=== PATIENT | female | born 1985 | race Caucasian/White ===

== ENCOUNTER 2022-08-19 15:44 | Outpatient (CLI) | payer OTHER, SELFPAY ==
[2022-08-21 17:46] LABS: Strep B DNA Probe NEGATIVE (Negative)
[2022-08-23 10:07] LABS: Strep B Pen/Amox Allergy No
== END 2022-08-19 15:45 | disposition home or self-care (01) ==
LOC: NFLDREF 15:44
PROVIDERS: Visit Provider Advanced Practice Midwife
DX: Z34.83 Encounter for supervision of other normal pregnancy, third trimester (principal); Z3A.36 36 weeks gestation of pregnancy
CPT/HCPCS: 87081; 87653

== ENCOUNTER 2022-09-21 06:34 | Inpatient (IN) | payer OTHER, SELFPAY ==
[2022-09-21] VITALS (8 sets, daily range): BP systolic 98–106; BP diastolic 52–60; PULSE 75–95; RESP 16; TEMP 36.5–36.8; O2SAT 94–99; BMI 27.8
--- NOTE | 2022-09-21 08:50 | W.PM.LDBA ---
Documented by User: Anju Carmen CNM 09/21/22 13:10 Subjective History of Present Illness Time Seen by Provider: 08:50 Date Seen: 09/21/22 Narrative: Richie is being admitted to Labor and Delivery for IOL r/t postdates. She is a 37 year old at 41 0/7 weeks gestation. Her full history and physical was dictated by Linn Muñoz CNM on 08/26/22. Please see this for details. Nathaly will be at bedside for support. G2, P1 001 : Nathaly H&P Done 08/26/2022 by DIEGO Farley 1. AMA: Patient does not believe she had a level 2 ultrasound 2. History of anxiety and depression. Not currently taking any medication and doing well. 3. Placental venous lakes on Anatomy scan 04/28/2022 Transfer of care at 34 weeks. Blood type O positive Antibody screen negative Hemoglobin 13.2 Platelets 330 Rubella 3.26, positive RPR negative Hepatitis B negative Hepatitis C negative HIV negative Chlamydia negative Gonorrhea negative Urine culture no growth 02/04/2022 Pap 08/22/2018 normal, negative HPV anatomy scan:read on 04/28/2022:? Impression:? Prominent movements, no visualized anatomic abnormality, multiple incidental venous lakes in the placenta. Urine culture on 02/04/2022: No growth 28 week labs: Hemoglobin 13.2 1 hour glucose 57 She declined genetic screening Flu: 06/19/2022 Covid: vaccinated and boosted x1 Tdap:07/08/2022 OB - H&P: Exam Physical Exam: Vital signs: Pulse BP Pulse Ox 75 101/60 97 09/21/22 08:45 09/21/22 08:45 09/21/22 08:45 Constitutional: Constitutional: no acute distress Routine HEENT Exam: Head: Present normocephalic Eye: Present normal appearance Routine Neck Exam: Neck: Present full ROM Routine Respiratory Exam: Respiratory: Present CTA bilaterally Routine Cardiovascular Exam: Cardiovascular: RRR Routine Exam: External: Present normal external exam Perineum Description: Normal Detailed Labor and Delivery Exam: Patient Gravid: yes Dilation (cm): 2 Effacement (%): 50 Cervix position: posterior Consistency: soft Tachysystole: No Contraction intensity: Mild Fetus (Single): Station: -3 Routine Back/Spine/Pelvis Exam: Back/Spine: full ROM Routine Skin Exam: Present intact, dry and warm Routine Neurological Exam: Present alert and oriented X3 Routine Psychiatric Exam: Present normal affect and normal thought process OB - Problem Based A/P Additional Plan (1) Post- : Status: Acute (2) Advanced maternal age (AMA) in : Status: Acute (3) Encounter for supervision of other normal in third trimester: Status: Acute Plan ASSESSMENT:? 37 at 41 0/7 weeks gestation? Post-dates complicated by:?Advanced Maternal Age Labor type: Induced, Early labor? Category 2 FHR pattern.??FHR: 120, Variability: Moderate, Accelerations: Present, Decelerations: Occasional variables with good return to baseline GBS Negative? PLAN:? 1. IOL per pitocin protocol 2. Routine intrapartum cares as ordered. 3. Monitoring per pitocin policy, continuous 4. Planning unmedicated . Desires water . Consent signed. Hep C negative. Candidate for analgesia of choice.?? 5. Patient encouraged to reposition and ambulate to promote physiologic labor and .? 6. Anticipate progress to active labor and ? ? Delivery/Labor/Induction Plan Plan: induction Induction method: per misoprostol protocol Documented by User: Mere Yousif CNM 09/21/22 13:17 OB - H&P: Exam Fetus (Single): Heart Rate Baseline: 115 Monitor Accelerations: Absent Monitor Decelerations: Variable (Rare, X 2 mild on admit) OB - Problem Based A/P Additional Plan (1) Post- : Status: Acute (2) Advanced maternal age (AMA) in : Status: Acute (3) Encounter for supervision of other normal in third trimester: Status: Acute Plan ASSESSMENT:? 37 at 41 0/7 weeks gestation? Post-dates complicated by:?Advanced Maternal Age Labor type: Induced Category 1 FHR pattern.?? GBS Negative? PLAN:? 1. IOL options reviewed, including risks and benefits. Decision made to proceed with cytotec per protocol. 2. Routine intrapartum cares as ordered. 3. Monitoring per cytotec policy, continuous 4. Planning unmedicated . Desires water . Consent signed. Hep C negative. Candidate for analgesia of choice.?? 5. Patient encouraged to reposition and ambulate to promote physiologic labor and .? 6. Anticipate progress to active labor and ? ?
[2022-09-21 08:58] LABS: SARS PCR* Negative SARS-CoV-2 (Negative)
[2022-09-21] MEDS: miSOPROStoL 25 MCG/0.25 TABLET VAGINAL ×4 (09:20→21:31)
--- NOTE | 2022-09-21 22:22 | PM.OBPNL ---
Subjective Time Seen by Provider: 21:15 Date Seen: 09/21/22 Narrative: Subjective:? Richie is coping well with induction of labor. She is currently being supported by her Nathaly. She reports she is feeling some abdominal tightening and some discomfort with contractions, but not pain. ?Reports concerns regarding possible use of pitocin because she had such a bad experience with it during her last . Discussed possible option for AROM instead of pitocin after cytotec if augmentation is needed. Will continue to monitor and reassess after final dose of cytotec and make a plan then. Questions answered to her satisfaction. She would like to continue with ambulation and position changes for comfort and pain management.?? ? Objective Exam: Objective: VSS, afebrile General Appearance:? Calm, cooperative. ?No acute distress. ? Psychiatric Exam: Alert and oriented, appropriate affect Abdomen: Gravid Ctx: ?Q 2-5 min apart. ?Mild ? ? FHTs: ?Baseline: 125 ? ? Variability: Moderate ? Accels: Present ? ?Decels: ?absent SVE: (previous exam this mornin/50/2) Membranes: Intact ? ? Cytotec x3? Vital Signs: Last Vital Signs Temp 98.3 F 09/21/22 21:38 Pulse 76 09/21/22 21:40 Resp 16 09/21/22 21:38 BP 102/53 L 09/21/22 21:40 Pulse Ox 97 09/21/22 08:45 Plan Plan: Assessment:?? 37 at 41w 0d gestation?? Patient is coping well with challenges of IOL?? Labor type: Induced? Category 1 FHR pattern.?? complicated by: Advanced Maternal Age, Post-dates Plan:?? Continue with IOL per cytotec protocol Continue with routine intrapartum cares as ordered.?? Patient encouraged to change positions to promote physiologic labor and .?? Candidate for analgesia of choice Encourage rest and sleep tonight if possible Patient plans for waterbirth? Monitoring: continuous per cytotec protocol Anticipate progress to active labor and NVD.
[2022-09-22] VITALS (20 sets, daily range): BP systolic 99–119; BP diastolic 48–78; PULSE 62–90; RESP 16–20; TEMP 36.5–36.8; O2SAT 98
[2022-09-22] MEDS: hydrOXYzine pamoate 25 MG CAPSULE 100 MG PO (01:01)
[2022-09-22] MEDS: MORPHINE 10 MG/ML inj IM (01:02)
[2022-09-22] MEDS: miSOPROStoL 25 MCG/0.25 TABLET VAGINAL (01:34)
--- NOTE | 2022-09-22 06:13 | PM.OBPNL ---
Subjective Time Seen by Provider: 06:13 Date Seen: 09/22/22 Narrative: Subjective:? Richie is coping well with labor pain/contractions. She is currently being supported by Nathaly. ? Denies concerns. Would like to get into tub as soon as possible. Agreeable to SVE before getting into tub.?She would like to continue with position changes and hydrotherapy for comfort and pain management.?? Objective Exam: Objective: VSS, afebrile General Appearance:? Calm, cooperative. ?No acute distress. Breathing through contractions.? Psychiatric Exam: Alert and oriented, appropriate affect Abdomen: Gravid Ctx: ?Q 2-3 min apart.?Moderate FHTs: ?Baseline: 125 ? ? Variability: Moderate ? Accels: Present ? ?Decels: ?Absent SVE: /0 Membranes: ?SROM X 1 hour, clear fluid with bloody show Cytotec, 5 doses completed? Vital Signs: Last Vital Signs Temp 98.3 F 09/22/22 05:30 Pulse 83 09/22/22 05:58 Resp 18 09/22/22 05:30 BP 106/53 L 09/22/22 05:58 Pulse Ox 97 09/21/22 08:45 Contractions Contraction intensity: Mild Assessment Station: -3 Heart Rate Baseline: 115 Monitor Accelerations: Absent Monitor Decelerations: Variable (Rare, X 2 mild on admit) Plan Plan: Assessment:?? 37 at 41w 1d gestation?? Patient is coping well with challenges of labor.?? Labor type: Induced, Active labor? Category 1 FHR pattern.?? complicated by: AMA, Postdates Plan:?? Continue with routine intrapartum cares as ordered.?? Patient encouraged to change positions to promote physiologic labor and .?? Candidate for Analgesia of choice Patient plans for waterbirth? Monitoring: intermittent per protocol Anticipate progress to active labor and NVD. ?
[2022-09-22] MEDS: OXYTOCIN 10 UNIT/ML INJ IM (07:36)
--- NOTE | 2022-09-22 07:52 | PM.OBPRCVD ---
Procedure Delivery date: 09/22/22 Procedure Done: Global Procedure Details: Patient is a 37 year-old G2 now P2 admitted on 09/21/22 at 41 Weeks, 0 Days gestation for IOL for post dates.? Cervical exam on admission was 2 cm/50 % effaced/-3 station with membranes intact in vertex presentation.? Contractions were every 7-11 minutes.? heart rate demonstrated baseline 115 bpm with moderate variability, + accelerations, - decelerations; a category 1 tracing.? SROM occurred at 0420 with clear fluid.? ?? Labor Analgesia:? None, did use nitrous briefly? ?? Pitocin:? Yes, [facility]TS[facility] only? ?? Labor onset:? 0500? ?? Complete:? 720? ?? Pushing:? 07? ?? heart tones during second stage were Dopplered without audible decelerations.? ?? At 0723 a viable male infant delivered in vertex KARL presentation over intact perineum via spontaneous vaginal delivery.? was placed on maternal abdomen.? Cord was clamped and cut after a about 45 second second delay so that baby could be brought to the warmer for minimal respiratory effort.? Nose and mouth were bulb suctioned.? Infant weight 8lb 9oz.? 5 at 1 minute and 9 at 5 minutes.? Shoulder dystocia: no.? Nuchal cord: x1, somersaulted and reduced after delivery.? ?? Placenta delivered spontaneously and complete at 0732 with a 3 vessel cord.? ?? Mother and infant were stable after delivery.? ?? Lacerations:? intact.? ?? Blood loss: 50 mL.? Blood loss measurement type: EBL? Sponge and needles counts are correct.? Events: Labor Induction Intrapartal Events: Labor Induction Induction method: per misoprostol protocol Delivery monitor: external FHT (NST and doppler) and external uterine Route of delivery: Episiotomy description: None Laceration description: None Delivery repair: Vicryl Estimated blood loss (mL): 50 Anesthesia type: None Disposition: floor [place] Gender: Male presentation: vertex Placental Delivery Description: Spontaneous Cord Description: 3 Vessels, Nuchal Cord (x1) and Loose OB Vag Delivery Procedures Additional Procedures NST: Yes Laceration Repair: No
[2022-09-22] MEDS: IBUPROFEN 600 MG TABLET PO ×2 (09:07→21:39)
[2022-09-22] MEDS: LANOLIN CREAM 1 APPLIC TOPICAL (22:21)
[2022-09-23] MEDS: ACETAMINOPHEN 500 MG TABLET 1000 MG PO ×2 (00:43→09:02)
[2022-09-23] MEDS: IBUPROFEN 600 MG TABLET PO (04:23)
[2022-09-23 05:22] VITALS: BP 99/60; PULSE 62; RESP 16; TEMP 36.4; O2SAT 97
[2022-09-23 08:05] VITALS: BP 95/66; PULSE 69; RESP 16; TEMP 36.4; O2SAT 98
--- NOTE | 2022-09-23 08:47 | PM.OBDSVD1 ---
DS: Providers Provider Time Seen by Provider: 08:47 Date Seen: 09/23/22 Date of admission: 09/21/22 06:34 Primary care physician: Not a Local Provider Admitting Clinician: Mere Yousif CNM Attending Physician on discharge: Anju Carmen CNM Date of Discharge: 09/23/22 DS: Diagnosis Discharge Diagnosis (1) state: Status: Acute (2) Lactating mother: Status: Acute (3) Anxiety and depression: Status: Acute Exam Narrative: Exam Narrative: Objective: VSS, afebrile GENERAL APPEARANCE: normal affect, alert, no distress MOOD: ?appropriate HEENT: normocephalic, neck supple, full ROM CHEST: ?Symmetrical chest wall movement. ?Normal respiratory effort. ?Clear to auscultation HEART: ?regular rate and rhythm ABDOMEN: ?soft, non-tender. Uterine fundus is firm, at Umbilicus, Midline and is appropriate for the stage of recovery. ?Bowel sounds present. PERINEUM: ?mild edema of the perineum, there is a no laceration. EXTREMITIES: ?normal and no edema Const: Vital Signs, click to edit/add: Vital Signs - 24 hr 09/22/22 08:53 09/22/22 09:09 09/22/22 09:24 Temperature Pulse Rate 66 79 62 Pulse Rate [Pulse Oximeter] Respiratory Rate Blood Pressure 101/66 105/71 114/77 Blood Pressure [Le ft Arm] Pulse Oximetry 09/22/22 09:39 09/22/22 09:54 09/22/22 10:09 Temperature Pulse Rate 82 62 63 Pulse Rate [Pulse Oximeter] Respiratory Rate Blood Pressure 119/75 119/68 99/62 Blood Pressure [Le ft Arm] Pulse Oximetry 09/22/22 21:55 09/23/22 05:22 Temperature 98 F 97.5 F L Pulse Rate Pulse Rate [Pulse Oximeter] 73 62 Respiratory Rate 16 16 Blood Pressure Blood Pressure [Le ft Arm] 113/69 99/60 Pulse Oximetry 98 97 Documenting provider has reviewed patient's vital signs: yes OB - DS: Summary Hospital Course Hospital Course: Subjective: Richie is a 37 y.o. who was admitted to L & D for IOL r/t Postdates and AMA. ?She had an uncomplicated NVD The patient feels well. ?The pain is well controlled with current medications and declines discharge prescription medications. ?She has no new complaints. ?She is breast feeding and reports things are going well.? the patient has done well.? Vitals have been stable.? She has remained afebrile.? Has a good appetite, is tolerating a general diet. ?She is voiding without difficulty.? She is passing gas and has not had a bowel movement.? She is ambulating and denies any dizziness.? Has Small amount of rubra lochia. ?She is planning condoms for prevention. Pt verbalized understanding to call us if anxiety increases or she has concerns about mood disorders based on her history of anxiety. Problems: none plan: Discharge home with baby. Follow up in 2 weeks and 6 weeks. , may follow up with if needed Peripartum Data Infant delivery method: Vaginal Laceration description: None complications: none [place] Infant Gender: Male Infant Discharge Plan: Home Status at Discharge Functional status at discharge: independent ambulation Overall status at discharge: patient is progressing back to baseline Time Spent with Patient Time attestation: Total time spent providing and/or coordinating discharge services: Time spent: Less than 30 minutes Discharge Plan Discharge Disposition: Home, Self-Care Date of Admission: 09/21/22 06:34 Attending Provider on Discharge: Anju Carmen Primary Care Provider: Provider,Not a Local Condition: Stable Anticipated Discharge Date/Time: 09/23/22 10:02 Discharge Medications: Continued DHA 200 mg capsule 200 mg PO DAILY cholecalciferol (vitamin D3) 25 mcg (1,000 unit) capsule 25 mcg PO QDAY ferrous sulfate 27 mg iron tablet 27 mg PO QDAY ascorbate calcium (vitamin C) 500 mg tablet 1 g PO Q6H docusate sodium [Colace] 100 mg capsule 100 mg PO QDAY Discharge Orders: Discharge Order (Routine); Ordered 09/23/22 Ordered By: Anju Carmen Patient Education: OB Over the Counter Medication Information, OB Vaginal/Breast Feeding Additional Instructions: 2 week and 6 week visits Activity Level: Activity as Tolerated Discharge Diet: Regular Follow Up Appointments: Provider,Not a Local [Primary Care Provider] - Forms: [employer] Info Instructions Discharge Comments: Stable Post- Day 1
== END 2022-09-23 11:38 | disposition home or self-care (01) | DRG 807 ==
PROVIDERS: Admitting Provider Advanced Practice Midwife; Visit Provider Advanced Practice Midwife
DX: O48.0 Post-term pregnancy (principal); Z37.0 Single live birth; O99.344 Other mental disorders complicating childbirth; F41.9 Anxiety disorder, unspecified; F32.A Depression, unspecified; Z3A.41 41 weeks gestation of pregnancy
CPT/HCPCS: 59200; 87635; A9270; J2270; J2590